=== PATIENT | male | born 1990 | race Caucasian/White ===

== ENCOUNTER 2021-01-08 21:52 | Emergency (ER) | payer MEDICAID ==
[~2021-01-08] VITALS: Ht 193 cm; Wt 86.2 kg
[2021-01-08 21:55] VITALS: BP 96/32
--- NOTE | 2021-01-08 23:44 | NUR ---
PT AMBULATED TO ROOM AND C/O PAIN TO RIGHT LOWER GUM AREA. NO OTHER COMPLAINTS FROM PT.
[2021-01-08] MEDS ORDERED: BUPIVACAINE 0.25% ONE (23:58)
[2021-01-08] MEDS ORDERED: LIDOCAINE-MPF 1%, 2ML ONE (23:58)
[2021-01-09] MEDS ORDERED: BUPIVACAINE 0.25% INFIL ONE
[2021-01-09] MEDS ORDERED: LIDOCAINE 1%, 2ML INFIL ONE
--- NOTE | 2021-01-09 00:11 | NUR ---
PA TO BEDSIDE TO NUMB THE DENTAL PLACE WHERE THE PAIN IS. LIDOCAINE AND BUPIVACAINE USED TO NUMB THE LOCATION. PA TO PRINT OUT D/C INSTRUCTIONS. PT TOLERATED WELL.
--- NOTE | 2021-01-09 00:20 | NUR ---
F/U AND D/C INSTRUCTIONS GIVEN TO PT AND HE V/U.
== END 2021-01-09 00:22 | disposition home or self-care (01) ==
LOC: ED 01-09 00:01
DX: K02.9 Dental caries, unspecified (principal); K08.89 Other specified disorders of teeth and supporting structures; Z72.9 Problem related to lifestyle, unspecified; F17.210 Nicotine dependence, cigarettes, uncomplicated
CPT/HCPCS: 64400; 99406